=== PATIENT | male | born 1980 | race Caucasian/White ===

== ENCOUNTER → 2016-12-29 | Outpatient (CLI) | payer OTHER, MEDICARE ==
[~2016-12-29] MED LIST: ALLO300T PO; AMLO10TA2 PO; ATOR20TA9 PO; CHOL500015 PO; CITA20TA5 PO; DOXA2TAB9 PO; LISI-170 PO; LISI40TA PO; NEBI5TAB2 PO; OMEP-110 PO; OMNIPAQUE 350 MG/ML, 100ML BOTTLE ONE; PRED10TA PO; PROP40TA PO; SODI650T PO
== END | disposition home or self-care (01) ==
LOC: RAD 12:38
PROVIDERS: ATTEND Internal Medicine Nephrology
DX: N18.6 End stage renal disease (principal); Z85.528 Personal history of other malignant neoplasm of kidney
CPT/HCPCS: 74178; Q9967